=== PATIENT | female | born 1965 | race Caucasian/White ===

== ENCOUNTER 2017-02-27 11:57 | Emergency (ER) | payer OTHER ==
[~2017-02-27] VITALS: Ht 167.6 cm; Wt 140.6 kg
[2017-02-27] MEDS ORDERED: METOPROLOL SUCC50 MG PO (12:11)
[2017-02-27] MEDS ORDERED: HYDROCHLOROTH12.5 MG PO (12:12)
[2017-02-27] MEDS ORDERED: BUSPIRONE HCL30 MG PO (12:12)
[2017-02-27] MEDS ORDERED: LEXAPRO5 MG PO (12:13)
--- NOTE | 2017-02-28 10:08 | EKG ---
[facility] [address] [facility] [place] [address] Signed Normal sinus rhythm Normal ECG No previous ECGs available Confirmed by ASHLIE JACKSON MD ([id number] on 02/28/2017 10:08:40 AM Electronically Signed By: ASHLIE JACKSON MD 02/28/17 1008 PATIENT NAME: CAN LORRAINEWILY BERNARDINO Electrocardiogram DATE OF : 63 PHYSICIAN: ASHLIE JACKSON MD REPORT #: [id number] REPORT IS CONFIDENTIAL AND NOT TO BE RELEASED WITHOUT AUTHORIZATION
--- NOTE | 2017-02-28 10:08 | EKG ---
[facility] [address] [facility] [place] [address] Signed Supraventricular tachycardia Marked ST abnormality, possible inferior subendocardial injury Abnormal ECG No previous ECGs available Confirmed by ASHLIE JACKSON MD ([id number] on 02/28/2017 10:08:27 AM Electronically Signed By: ASHLIE JACKSON MD 02/28/17 1008 PATIENT NAME: WILY KNOWLES BERNARDINO Electrocardiogram DATE OF : 63 PHYSICIAN: ASHLIE JACKSON MD REPORT #: [id number] REPORT IS CONFIDENTIAL AND NOT TO BE RELEASED WITHOUT AUTHORIZATION
== END 2017-02-27 12:48 | disposition home or self-care (01) ==
LOC: ED 11:57
DX: I47.1 Supraventricular tachycardia (principal); Z88.5 Allergy status to narcotic agent; Z79.899 Other long term (current) drug therapy
CPT/HCPCS: 93005; 93010; 99282